=== PATIENT | male | born 1985 | race Caucasian/White ===

== ENCOUNTER 2024-07-12 17:43 | Emergency (ER) | payer MEDICAID, SELFPAY ==
[2024-07-12 17:45] VITALS: BMI 25.1
[2024-07-12 18:53] VITALS: BP 110/77; PULSE 84; RESP 18; TEMP 37; O2SAT 97
--- NOTE | 2024-07-12 19:06 | XR_ITS ---
Examination: PA lateral chest 2 views TECHNIQUE: Upright PA lateral chest 2 views Examination time: July 12, 2024 2040 hours INDICATIONS: Hemoptysis beginning 5 days ago. FINDINGS: Normal heart size Mild pneumonia versus scarring in the lingular segment noted on the lateral view No pulmonary edema Intact osseous structures IMPRESSION: Mild pneumonia versus scarring in the lingular segment left upper lobe, clinical correlation advised
--- NOTE | 2024-07-12 19:09 | EDNOTE_ITS ---
ED Asthma RME/HPI General Chief Complaint: General Adult/Misc Complain Stated Complaint: SENT BY [facility] DUE TO COUGHING UP BLOOD ON 07/09/24 Time Seen by Provider: 07/12/24 19:06 Arrival date/time: 07/12/24 17:43 39M with history of HTN, asthma, and BPH presents to ED with episode of blood in sputum recently. There is also some cough, CP, and SOB. Limitations: no limitations Related Data Previous Rx's ?Medication ?Instructions ?Recorded doxycycline monohydrate 100 mg 100 mg PO BID 5 days #1 0 caps 07/12/24 capsule prednisone 20 mg tablet 20 mg PO QDAY 5 days #5 tabs 07/12/24 Allergies Allergy/AdvReac Type Severity Reaction Status Date / Time No Known Allergies Allergy Verified 07/12/24 17:45 Review of Systems Review of Systems Systems Reviewed: All systems reviewed, normal except as documented Constitutional Constitutional: Reports system reviewed and no additional complaints, except as documented, Denies fever(s) and Denies headache(s) ENT Ears, Nose, Mouth, and Throat: Denies disequilibrium and Denies headache(s) Cardiovascular Cardiovascular: Reports system reviewed and no additional complaints, except as documented, Reports as per HPI, Reports chest pain and Reports dyspnea Respiratory Respiratory: Reports system reviewed and no additional complaints, except as documented, Reports as per HPI, Reports cough, Reports dyspnea and Reports hemoptysis Gastrointestinal Gastrointestinal: Reports system reviewed and no additional complaints, except as documented, Denies abdominal pain, Denies nausea and Denies vomiting Neurologic Neurologic: Reports system reviewed and no additional complaints, except as documented, Denies confusion, Denies disequilibrium and Denies headache(s) Psychiatric Psychiatric: Denies confusion Past Medical History Social History SMOKING STATUS: Current some day smoker ED Exam General Limitations: Present no limitations General appearance: Present alert and in no apparent distress Head Head exam: Present atraumatic Eye Eye exam: Present normal appearance, PERRL and EOMI ENT ENT exam: Present normal exam, normal oropharynx and mucous membranes moist Neck Neck exam: Present normal inspection, full ROM and trachea midline Chest Chest inspection: Present normal inspection and symmetric chest wall rise Respiratory Respiratory exam: Present wheezes (R) Cardiovascular Cardiovascular exam: Present regular rate, normal rhythm and normal heart sounds Abdominal Exam Abdominal exam: Present soft and normal bowel sounds Extremities Exam Extremities exam: Present normal inspection and full ROM Back Exam Back exam: Present normal inspection and full ROM Neurological Exam Neurological exam: Present alert, oriented X3 and CN II-XII intact Psychiatric Psychiatric exam: Present normal affect and normal mood Skin Skin exam: Present warm, dry, intact and normal color Course Quality Measures none Orders Category Date Time Status XR chest 2V Stat Exams 07/12/24 19:06 Ordered CBC Stat Lab 07/12/24 19:06 Ordered Comprehensive Metabolic Panel Stat Lab 07/12/24 19:06 Ordered D-Dimer Stat Lab 07/12/24 19:07 Ordered Troponin I Stat Lab 07/12/24 19:06 Ordered Albuterol/Ipratr Rt Lluvia [Duoneb Rt Lluvia] Med 07/12/24 19:06 Once 3 ml INH X1 ONE Dexamethasone Inj [Decadron Inj] Med 07/12/24 19:06 Once 10 mg PO X1 ONE Vital Signs Vital signs: Vital Signs Temperature 98.6 F 07/12/24 18:53 Pulse Rate 84 07/12/24 18:53 Respiratory Rate 18 07/12/24 18:53 Blood Pressure 110/77 07/12/24 18:53 Pulse Oximetry (%) 97 07/12/24 18:53 Oxygen Delivery Method Room Air 07/12/24 18:53 Asthma MDM Narrative MDM Narrative:: 39M with history of HTN, asthma, and BPH presents to ED with episode of blood in sputum recently. There is also some cough, CP, and SOB. Physical exam reveals wheezing in R lungs. Normal WOB. Patient is afebrile, calm, and alert. CXR PNA. No leukocytosis. Trop/d-dimer normal. CMP unremarkable. Meds relieved wheezing. Patient data External records reviewed:: None Clinical information provided by:: patient Social determinants that could affect healthcare access:: none Patient has the following chronic illnesses:: HTN, asthma, and BPH How is presenting disease/condition affected by chronic disease/condition?: exacerbated by Evaluation data The following diagnostics were reviewed and interpreted by me:: lab results and radiology exam(s) Lab and/or radiology exams considered but not ordered:: ordered Interpretation Summary: above Medications / Prescriptions Medications or Prescriptions considered but not ordered:: ordered Medication administrations:: Medication Administration History Albuterol/Ipratropium (Albuterol/Ipratropium (Duoneb) Rt Lluvia 3 Ml Nebu) 3 ml INH X1 ONE Stop: 07/12/24 19:07 Dexamethasone Sodium Phosphate (Dexamethasone Sod Phos Inj 10 Mg/Ml Vial) 10 mg PO X1 ONE Stop: 07/12/24 19:07 Consultations Consultation(s) initiated? (list below): No Diagnosis Differential diagnosis asthma: Acute exacerbation, Status asthmaticus, Acute asthmatic bronchitis, PE, Pneumonia, COPD exacerbation, Pulmonary edema systolic, Pulmonary edema dystolic, ARDS, Pneumothorax and Foreign body in trachea Most likely diagnosis given after review of the tests above:: CAP Admission Indicated Admission indicated?: not indicated Admission Request Was there a request for admission?: No Disposition Plan Disposition Plan: Discharge Discharge Attestation Discharge Attestation: The patient and all family members were given an opportunity to ask questions and understood the discharge instructions. Discharge instructions specifically effects, indications for sooner follow up or return to the emergency department, and the expected course of current diagnosis. Patient condition: Stable Discharge Plan Plan Patient Disposition: HOME (Self Care) Discharge Disposition comment: Stable Prescriptions/Referrals Prescriptions/Med Rec: New doxycycline monohydrate 100 mg capsule 100 mg PO BID 5 Days Qty: 10 0RF prednisone 20 mg tablet 20 mg PO QDAY 5 Days Qty: 5 0RF Referrals: No Primary/Family,Physician [Primary Care Provider] - In 1 week Problem List Clinical Impression: CAP (community acquired pneumonia) Patient/Caregiver Discharge Instructions Education Materials: ED Pneumonia (Adult) Additional Instructions: Please follow-up with PCP within 24-48 hours and return immediately if symptoms worsen. Print Language: Pashto Stand Alone Forms: Patient Portal Info Letter WALTER/CONSUELO Supervising Physician WALTER/CONSUELO Supervising Physician: Dr. Tejada
[2024-07-12] MEDS: ALBUTEROL/IPRATROPIUM (Duoneb) RT SOL 3 ML NEBU INH (19:18)
[2024-07-12] MEDS: dexAMETHasone 4 MG TABLET 10 MG PO (19:18)
[2024-07-12 19:23] VITALS: PULSE 101; RESP 16; O2SAT 98
[2024-07-12 19:55] LABS: Basophils # (Auto) 0.1 Thou/mm3 (0.0-0.2); Basophils % (Auto) 1 % (0-2.5); Eosinophils # (Auto) 0.3 Thou/mm3 (0.0-0.5); Eosinophils % (Auto) 5 % (0-10); Hemoglobin 13.4 g/dL (13.5-16.0); Immature Granulocytes % (Auto) 0 % (0-0); Immature Granulocytes Auto 0.01 Thou/mm3 (0.00-0.00); Lymphocytes % (Auto) 52 % (10-50); Mean Corpuscular HGB Conc 32.7 g/dl (31.0-37.0); Mean Corpuscular Hemoglobin 28.9 pg (25.0-35.0); Mean Corpuscular Volume 88 fL (80-100); Monocytes # (Auto) 0.3 Thou/mm3 (0.0-0.8); Monocytes % (Auto) 6 % (0-12); Neutrophils % (Auto) 36 % (37-80); Nucleated Red Blood Cell % 0 /100 WBC (0); Platelet Count 212 Thou/mm3 (140-440); RDW Standard Deviation 55.1 fL (35.1-43.9); Red Blood Count 4.64 Miln/mm3 (4.50-5.90); White Blood Count 5.7 Thou/mm3 (3.8-10.6)
[2024-07-12 20:06] LABS: Alanine Aminotransferase 14 U/L (10-49); Albumin, Serum 4.7 gm/dL (3.5-5.0); Albumin/Globulin Ratio 1.5 (1.2-2.2); Alkaline Phosphatase 104 U/L (46-116); Anion Gap 6 (7-16); Aspartate Amino Transferase 29 U/L (0-34); BUN/Creatinine Ratio 18 Ratio (12-20); Bilirubin,Total 0.3 mg/dL (0.3-1.2); Blood Urea Nitrogen 14 mg/dL (9-23); Calcium 9.6 mg/dL (8.3-10.6); Calcium (Corrected) 9.6 mg/dL (8.5-10.1); Carbon Dioxide 26.6 mMol/L (20.0-31.0); Chloride 106 mMol/L (98-107); Creatinine (Component) 0.8 mg/dL (0.6-1.3); Estimated Creatinine Clearance 133.3 mL/min (>60); Globulin 3.1 gm/dL (2.3-3.5); Glucose 91 mg/dL (74-106); Osmolality,Calculated 278 (275-295); Potassium 4.6 mMol/L (3.4-5.1); Sodium 139 mMol/L (136-145); Total Protein 7.8 gm/dL (5.7-8.2); Troponin I < 0.002 ng/mL (0.0-0.045); eGFR > 60 See Note
[2024-07-12 20:13] LABS: D-Dimer < 250 ng/mL (<600)
[2024-07-12 20:52] VITALS: BP 109/76; PULSE 90; RESP 18; TEMP 36.6; O2SAT 98
== END 2024-07-12 20:57 | disposition home or self-care (01) ==
PROVIDERS: Physician Assistant; Emergency Provider Emergency Medicine
DX: J18.9 Pneumonia, unspecified organism (principal); I10 Essential (primary) hypertension; J45.909 Unspecified asthma, uncomplicated
CPT/HCPCS: 36415; 71046; 80053; 84484; 85025; 85379; 94640; 99283; A9270; J8540